=== PATIENT | male | born 1940 | race Caucasian/White ===

== ENCOUNTER 2017-09-06 12:05 | Emergency (ER) | payer MEDICARE, BC ==
--- NOTE | 2017-09-06 12:38 | UC ---
Laceration HPI - HPI Summary HPI Summary: PT presents with laceration to right palm. He tells me that he was walking [place]y lawn about 30min [employer] and slipped. He had a glass vase in his hands that broke and cut his right palm. Did not hit his head or injure anything else on his person. Last tetanus was over 5 years ago. - History Of Current Complaint Hx Obtained From: Patient Laceration Location: Hand Mechanism Of Injury: Sharp Trauma Onset/Duration: Sudden Onset Severity: Mild Pain Intensity: 2 Pain Scale Used: 0-10 Numeric <Denis Flores - Last Filed: 09/06/17 14:11> <Radha Rivera - Last Filed: 09/07/17 20:20> - History Of Current Complaint Stated Complaint: RIGHT HAND LACERATION Time Seen by Provider: 09/06/17 12:38 - Allergies/Home Medications Allergies/Adverse Reactions: Allergies Allergy/AdvReac Type Severity Reaction Status Date / Time Adhesive Tape Allergy Rash Verified 09/06/17 12:37 Home Medications: Home Medications Allopurinol 100 mg PO DAILY 09/06/17 [History Confirmed 09/06/17] Amlodipine Besylate [Norvasc 10 mg tab] 10 mg PO DAILY 09/06/17 [History Confirmed 09/06/17] Aspirin [Oelrichs Aspirin] 81 mg PO DAILY 09/06/17 [History Confirmed 09/06/17 ] Atorvastatin* [Lipitor 10 MG*] 10 mg PO DAILY 09/06/17 [History Confirmed ] Brimonidine/Timolol OPTH(NF) [Combigan OPHTH (NF)] 1 drop OPHTHALMIC BID [History Confirmed 09/06/17] Cholecalciferol (Vitamin D3) [Vitamin D3] 1,000 mg PO DAILY 09/06/17 [History Confirmed 09/06/17] Empagliflozin/Metformin HCl [Synjardy Xr 10-1,000 mg Tablet] 1 tab PO DAILY 11/18 [History Confirmed 09/06/17] Furosemide TAB* [Lasix TAB*] 20 mg PO DAILY PRN 09/06/17 [History Confirmed 11/18] Losartan/Hydrochlorothiazide [Losartan-Hctz 100-12.5 mg Tab] 1 tab PO DAILY 11/18 [History Confirmed 09/06/17] Lutein/Zeaxanthin [Ocuvite Lutein 25-5 mg Softgel] 1 tab PO BEDTIME 09/06/17 [ History Confirmed 09/06/17] Meclizine TAB* [Antivert 12.5 TAB*] 25 mg PO DAILY 09/06/17 [History Confirmed 09/06/17] Methylphenidate HCl [Methylphenidate ER] 10 mg PO DAILY 09/06/17 [History Confirmed 09/06/17] Metoprolol Tartrate TAB* [Lopressor TAB*] 25 mg PO DAILY 09/06/17 [History Confirmed 09/06/17] Nitroglycerin [Nitrostat] 1 tab PO SEE INSTRUCTIONS PRN 09/06/17 [History Confirmed 09/06/17] Omega3/Dha/Epa/Fish Oil/Vit D3 [Fish Oil-Vit D3 Softgel] 1 tab PO BEDTIME [History Confirmed 09/06/17] Omeprazole 40 mg PO DAILY 09/06/17 [History Confirmed 09/06/17] Potassium Chlor TAB* [Klor Con ER TAB 10 MEQ*] 10 meq PO DAILY 09/06/17 [ History Confirmed 09/06/17] buPROPion HCl [Bupropion Xl] 300 mg PO DAILY 09/06/17 [History Confirmed ] PMH/Surg Hx/FS Hx/Imm Hx Endocrine History: Diabetes, Dyslipidemia Cardiovascular History: Hypertension - Surgical History Surgical History: Yes Surgery Procedure, Year, and Place: bowel resection WITH COLOSTOMY, 2001, [facility] appendectomy, AGE 2. LEFT FOOT/Foot reconstruction from diabetic neuropathy. COLOSTOMY TAKEDOWN, 2001, [facility]. GALLBLADDER 2012, [facility]. Radioactive iodine treatment - thyroid ablasion. appendix removed 2 years old. sesamoid bone removed in left foot. L foot: all toes removed 12/14 - Family History Known Family History: Positive: Hypertension, Diabetes - Social History Occupation: Retired Lives: With Family Alcohol Use: None Substance Use Type: None Smoking Status (MU): Never Smoked Tobacco Have You Smoked in the Last Year: No - Immunization History Most Recent Influenza Vaccination: FALL 2014 Most Recent Tetanus Shot: 2010 Most Recent Pneumonia Vaccination: 2009 <Denis Flores - Last Filed: 09/06/17 14:11> Review of Systems Constitutional: Negative Skin: Other - Laceration to right palm Respiratory: Negative Cardiovascular: Negative Neurovascular: Negative Musculoskeletal: Negative Neurological: Negative Psychological: Negative All Other Systems Reviewed And Are Negative: Yes <Denis Flores Last Filed: 09/06/17 14:11> Physical Exam - Summary Physical Exam Summary: GENERAL: NAD. WDWN. No pain distress. SKIN: 1.5cm linear laceration to right palmar surface. No tendon involvement. No active bleeding. NECK: Supple. Nontender. No lymphadenopathy. CHEST: CTAB. No r/r/w. No accessory muscle use. Breathing comfortably and in no distress. CV: RRR. Without m/r/g. Pulses intact radial and ulnar. MSK: FROM right hand and all fingers. Strength 5/5 including rock crusher strength. NEURO: Alert. Sensations intact hand and all fingers. PSYCH: Age appropriate behavior. Triage Information Reviewed: Yes <Denis Flores Last Filed: 09/06/17 14:11> Vital Signs: Initial Vital Signs Temp 97.2 F 09/06/17 12:37 Pulse 51 09/06/17 12:37 Resp 18 09/06/17 12:37 BP 120/56 09/06/17 12:37 Pulse Ox 95 09/06/17 12:37 <Radha Rivera - Last Filed: 09/07/17 20:20> Laceration Repair - Laceration Repair 1 Description: Linear Laceration Size After Repair: Length (cm) - 1.5 Modified For Repair: No Type Injection: Local Anesthesia Used: 2.0% Lido Irrigation With Pressure Irrigation Device: Yes Closure Material: Sutures - 6-0 three Closure Method: Single Layer Suture Of: Skin Suture Type: Nylon <Denis Flores Last Filed: 09/06/17 14:11> Laceration Course/Dx - Course/Dx Course Of Treatment: A time out was performed, witnessed, and signed. The area was irrigated with 100mL sterile saline. 2mL of 2% lidocaine without epi was administered and good anesthetization was achieved. In the usual sterile fashion , three 6-0 nylon sutures were placed. The wound was bandaged with telfa. Pt tolerated procedure well. - Differential Dx - Laceration/Wound Provider Diagnoses: 1.5cm hand laceration <Denis Flores - Last Filed: 09/06/17 14:11> Discharge - Sign-Out/Discharge Documenting (check all that apply): Discharge - Billing Disposition and Condition Condition: STABLE Disposition: HOME <Denis Flores - Last Filed: 09/06/17 14:11> - Billing Disposition and Condition Condition: STABLE Disposition: HOME <Radha Rivera - Last Filed: 09/07/17 20:20> - Discharge Plan Condition: Stable Disposition: HOME Patient Education Materials: Care For Your Stitches (DC), Laceration (ED) Referrals: Elizabeth Rivera MD [Primary Care Provider] - Additional Instructions: If you develop a fever, shortness of breath, chest pain, new or worsening symptoms - please call your PCP or go to the ED. 1) Please keep the area bandaged, clean, dry, and intact for the next 24- 48hours. 2) If you develop a fever, colored or thick discharge, increased pain or swelling - please call your PCP or go to the ED. 3) Please return in 8-10 days to have your THREE sutures removed. Attestation Statement User Type: Provider - I was available for consult. This patient was seen by the ABBIE. The patient was not presented to, seen by, or examined by me. -Ling <Radha Rivera - Last Filed: 09/07/17 20:20>
[2017-09-06] MEDS ORDERED: Tetan/Diph/Pertus SYR(Tdap)* 0.5 ML SYR(BOOSTRIX) use SYR IM ONE (12:42)
[2017-09-06 12:46] VITALS: BP 120/56
[2017-09-06] MEDS ORDERED: Lidocaine 2% PF * 5 ML VIAL INJ ONE (12:52)
== END 2017-09-06 13:36 | disposition home or self-care (01) ==
LOC: UCCORT 12:05
DX: S61.411A Laceration without foreign body of right hand, initial encounter (principal); W00.0XXA Fall on same level due to ice and snow, initial encounter; Y92.9 Unspecified place or not applicable; Z79.82 Long term (current) use of aspirin; E11.9 Type 2 diabetes mellitus without complications; E78.5 Hyperlipidemia, unspecified; I10 Essential (primary) hypertension
CPT/HCPCS: 12001; 90471; 90715; 99211; G0463

== ENCOUNTER 2017-09-17 10:28 | Emergency (ER) | payer MEDICARE, BC ==
--- NOTE | 2017-09-17 11:19 | UC ---
HPI Wound/Suture Re-check - HPI Summary HPI Summary: Patient to urgent care today to have sutures removed from his right hand. Sutures were placed 11 days ago. Wound well-healed well approximated no evidence of infection. One suture has come out on its own - History Of Current Complaint Chief Complaint: UCWounds Stated Complaint: STITCHES REMOVAL Time Seen by Provider: 09/17/17 11:16 Hx Obtained From: Patient Onset/Duration: Sudden Onset Pain Intensity: 0 Pain Scale Used: 0-10 Numeric - Allergies/Home Medications Allergies/Adverse Reactions: Allergies Allergy/AdvReac Type Severity Reaction Status Date / Time Adhesive Tape Allergy Rash Verified 09/17/17 11:28 PMH/Surg Hx/FS Hx/Imm Hx Previously Healthy: No Cardiovascular History: Cardiac Disease, Hypertension GI/ History: Gastroesophageal Reflux Psychological History: Depression - Surgical History Surgical History: Yes Surgery Procedure, Year, and Place: bowel resection WITH COLOSTOMY, 2001, [facility] appendectomy, AGE 2. LEFT FOOT/Foot reconstruction from diabetic neuropathy. COLOSTOMY TAKEDOWN, 2001, [facility]. GALLBLADDER 2012, [facility]. Radioactive iodine treatment - thyroid ablasion. appendix removed 2 years old. sesamoid bone removed in left foot. L foot: all toes removed 12/14 - Family History Known Family History: Positive: Hypertension, Diabetes - Social History Occupation: Retired Lives: With Family Alcohol Use: None Substance Use Type: None Smoking Status (MU): Never Smoked Tobacco Have You Smoked in the Last Year: No - Immunization History Most Recent Influenza Vaccination: FALL 2014 Most Recent Tetanus Shot: 2010 Most Recent Pneumonia Vaccination: 2009 Review of Systems Constitutional: Negative Skin: Other - healing wound on right palm Eyes: Negative ENT: Negative Respiratory: Negative Cardiovascular: Negative Gastrointestinal: Negative Genitourinary: Negative Motor: Negative Neurovascular: Negative Musculoskeletal: Negative Neurological: Negative Psychological: Negative Is Patient Immunocompromised?: No All Other Systems Reviewed And Are Negative: Yes Physical Exam Triage Information Reviewed: Yes Appearance: Well-Appearing, No Pain Distress, Well-Nourished Vital Signs Reviewed: Yes Eye Exam: Normal Eyes: Positive: Conjunctiva Clear ENT Exam: Normal ENT: Positive: Normal ENT inspection, Hearing grossly normal. Negative: Muffled voice, Hoarse voice, Dental tenderness Neck exam: Normal Neck: Positive: Supple, Nontender Respiratory Exam: Normal Respiratory: Positive: Chest non-tender, No respiratory distress, No accessory muscle use Cardiovascular Exam: Normal Cardiovascular: Positive: RRR, Pulses Normal, Brisk Capillary Refill Musculoskeletal Exam: Normal Musculoskeletal: Positive: Strength Intact, ROM Intact, No Edema Neurological Exam: Normal Neurological: Positive: Alert, Muscle Tone Normal Psychological Exam: Normal Psychological: Positive: Normal Response To Family Skin Exam: Normal Skin: Positive: Other - 1.5 cm wound healing on right palm Course/Dx - Course Course Of Treatment: suture removal, steri strip, follow with pcp - Differential Dx - Laceration/Wound Provider Diagnoses: healing wound/suture removal right palm, hypertension in poor control Discharge - Sign-Out/Discharge Documenting (check all that apply): Discharge - Discharge Plan Condition: Stable Disposition: HOME Patient Education Materials: Hypertension (ED), Skin Adhesive Care (ED), Stitches Removal (ED) Referrals: Elizabeth Rivera MD [Primary Care Provider] - 2 Weeks - Billing Disposition and Condition Condition: STABLE Disposition: HOME
[2017-09-17 11:27] VITALS: BP 147/83
== END 2017-09-17 11:36 | disposition home or self-care (01) ==
LOC: UCCORT 10:28
DX: S61.401D Unspecified open wound of right hand, subsequent encounter (principal); I10 Essential (primary) hypertension; Z88.8 Allergy status to other drugs, medicaments and biological substances; X58.XXXD Exposure to other specified factors, subsequent encounter
CPT/HCPCS: 99212; G0463